=== PATIENT | female | born 1950 | race African-American/Black ===

== ENCOUNTER 2017-09-20 09:56 | Inpatient (IN) | payer OTHER ==
--- NOTE | 2017-09-20 07:57 | HP ---
[facility] - Chief Complaint Chief Complaint: right knee pain - Past Medical History Allergies/Adverse Reactions: Allergies Allergy/AdvReac Type Severity Reaction Status Date / Time No Known Drug Allergies Allergy Verified 08/31/17 14:41 - Current Medications Current Medications: Home Medications Medication Instructions Recorded Atorvastatin Ca [Lipitor] 20 mg PO HS 10/19/12 Cholecalciferol (Vitamin D3) 2,000 unit PO DAILY 07/09/15 [Vitamin D3] Zalma-3 Fatty Acids [Zalma-3] 1,000 mg PO DAILY 12/25/15 Cyanocobalamin [Vitamin B12 -] 1,000 mcg PO DAILY 08/31/17 [facility] Physical Exam - Physical Examination General Appearance: Well Nourished, Well Developed, Alert & Oriented x3 ENT: Clear Lung: Normal air movement Heart: Regular rate & rhythm Extremities: Other (right knee- + swelling, + ttp, decr rom, nvi xrays show grade 4 tricompartmental djd) Neurological: Intact, Alert, Oriented Satellite Impression/Plan - Impression/Plan Impression: right knee djd Operative Procedure: right koko tkr Date to be Performed: 09/20/17
[2017-09-20] MEDS ORDERED: CEFAZOLIN 2 GM/D5W 2 GM/50 ML ML IVPB ONE (10:25)
[2017-09-20] MEDS ORDERED: TRANEXAMIC ACID 1000 MG/10 ML VIAL IVPUSH ONE (10:25)
[2017-09-20 10:57] VITALS: BMI 33.5
[2017-09-20] MEDS ORDERED: oxyCODONE HCL 10 MG SUSTAINED ACTING TABLET ONE (10:59)
[2017-09-20] MEDS ORDERED: CELECOXIB 200 MG CAPSULE ONE (11:00)
[2017-09-20] MEDS ORDERED: GABAPENTIN 300 MG CAPSULE (FP) ONE (11:00)
[2017-09-20] MEDS: CELECOXIB 200 MG CAPSULE PO ONE ×2 (11:05→17:15)
[2017-09-20] MEDS: GABAPENTIN 300 MG CAPSULE (FP) PO ONE ×2 (11:05→17:16)
[2017-09-20] MEDS: oxyCODONE HCL 10 MG SUSTAINED ACTING TABLET PO ONE ×2 (11:05→17:16)
[2017-09-20] MEDS ORDERED: ceFAZolin SODIUM 1 GM VIAL ONE ×3 (12:23→13:45)
[2017-09-20] MEDS ORDERED: VANCOMYCIN 1,000 MG VIAL (RESTRICTED TO ID ONLY) ONE (12:24)
[2017-09-20] MEDS ORDERED: DEXAMETHASONE SOD PHOSPHATE/PF 10 MG/ML SDV ONE (12:35)
[2017-09-20] MEDS ORDERED: BUPIVACAINE HCL/PF (5 MG/ML) 30 ML VIAL IJ ONE (12:35)
[2017-09-20] MEDS ORDERED: SODIUM CHLORIDE 0.9% P/F 10 ML VIAL IJ ONE (12:36)
[2017-09-20] MEDS ORDERED: MIDAZOLAM HCL 2 MG/2 ML SINGLE DOSE VIAL ONE ×3 (12:43→14:41)
[2017-09-20] MEDS ORDERED: TRANEXAMIC ACID 1000 MG/10 ML VIAL ONE (13:45)
[2017-09-20] MEDS ORDERED: MAG HYDROX/AL HYDROX/SIMETH 30 ML UNIT-DOSE CUP PO PRN (15:12)
[2017-09-20] MEDS ORDERED: MAGNESIUM HYDROX 2400MG/30ML ORAL SUSPENSION 30 ML CUP PO PRN (15:12)
[2017-09-20] MEDS ORDERED: ONDANSETRON 4 MG/2 ML VIAL IVPUSH PRN ×2 (15:12→15:24)
--- NOTE | 2017-09-20 15:14 | OP ---
Operative Note - Note: Operative Date: 09/20/17 (meme) Pre-Operative Diagnosis: right knee djd Operation: right koko tkr Post-Operative Diagnosis: Same as Pre-op Surgeon: Maximino Gilbert Hand Wood Sander: Mike Michelle Anesthesiologist/BAND AND CUFF CUTTER: Clif Delgadillo Anesthesia: Spinal, Local Specimens Removed: bone fragments Estimated Blood Loss (mls): 200 Operative Report Dictated: Yes
[2017-09-20] MEDS ORDERED: oxyCODONE HCL 5 MG TABLET PO PRN ×2 (15:22)
[2017-09-20] MEDS ORDERED: PROMETHAZINE HCL 25 MG/1 ML VIAL IVPB PRN (15:24)
[2017-09-20] MEDS ORDERED: LACTATED RINGERS SOLUTION 1,000 ML IV SCH ×2 (15:30)
[2017-09-20] MEDS ORDERED: ACETAMINOPHEN 325 MG TABLET (FP) ONE (15:41)
[2017-09-20] MEDS: ACETAMINOPHEN 325 MG TABLET (FP) PO SCH ×3 (15:43→21:16)
--- NOTE | 2017-09-20 17:51 | SPEC ---
DATE OF OPERATION: 09/20/2017 PREOPERATIVE DIAGNOSIS: Degenerative joint disease, right knee. POSTOPERATIVE DIAGNOSIS: Degenerative joint disease, right knee. PROCEDURE: Right total knee replacement with robotic-assisted navigation (MAKOplasty). SURGICAL ATTENDING: Maximino Gilbert MD THERMOSTAT MECHANIC: SHEA Rodrigues ANESTHESIA: Regional and spinal. CLOSURE: A Press-Fit Triathlon knee system with a 5 femur, 5 tibia, 9 polyethylene, a 35 patella; No. 1 Vicryl, fascia; 0 and 2-0 for subcutaneous; and 3-0 Monocryl subcuticular with skin glue for skin; 4-0 undyed Vicryl for pin sites. ESTIMATED BLOOD LOSS: Less than 100 mL. COMPLICATIONS: None. CONDITION: To recovery room in stable condition. DESCRIPTION OF OPERATIVE PROCEDURE: Patient was taken to the operating room on September 20, 2017. Regional and spinal anesthesia was administered by the anesthesiologist. IV Kefzol was administered prophylactically prior to the case as well as TXA. The right lower extremity was prepped and draped in the usual sterile fashion. The midline 10- to 12-cm longitudinal incision was made. Hemostasis was achieved with Bovie cautery. Sharp dissection was carried down to the extensor mechanism which was perform the procedure. Medial parapatellar arthrotomy was then performed, leaving a cuff of tissue for later closure. The patella was inverted and the knee was flexed up. The fat pad was excised. Subperiosteal dissection was done on the anteromedial proximal tibia until the knee was able to be brought forward. This was facilitated by taking the ACL, PCL and medial and lateral menisci. Checkpoints were placed in both the femur and in the tibia. Two parallel threaded pins were drilled superior to the knee joint through the already made incision from anterior to posterior just going through the anterior cortex but just engaging but not going through the posterior cortex. Two threaded pins were drilled through 2 small stab incisions in parallel fashion 1 handbreadth below the tibial tubercle through the anterior cortex of the tibia and engaging but not going through the posterior cortex. Both sets of pins were attached to navigation arrays for the RADHA system. The knee was then registered with the navigation system with center of rotation of the hip, medial and lateral malleoli and multiple sites both on the tibia and on the femur. Confirmation of excellent registration was confirmed by "popping the bubbles." At this time, the knee was thoroughly inspected to remove all osteophytes around the knee. The knee was then tensioned in varus/valgus at both full extension and at 90 degrees of flexion to ascertain our gaps. The virtual position of the components was optimized to ensure equal gaps throughout the range of motion. Once this was performed, the robot was brought into the field, was registered. The bone was cut as per the specifications on both the tibia and on the femur. The box cuts were then made as well. Excellent trial stability was obtained on the femur. The tibial baseplate was allowed to "find itself" and then was clipped into place. Confirmation of excellent external rotation of that component was confirmed by the navigation device as well.The patella was calibered for thickness and cut at the appropriate level. The appropriate lollipop was used to drill 3 holes in the patella and a trial asymmetric patellar button was applied. The knee was taken through a range of motion and found to have excellent stability from full extension to full flexion with excellent tracking of the patella. The trial components were then removed. The lug holes were drilled in the femur. The cementless keel was punched in the tibia. The real Press-Fit components were malleted into place, first with the tibia and then with the femur, and then the patella was crimped into place as well. The real polyethylene liner was then clipped into place. Range of motion, stability and tracking were as described earlier. The knee was thoroughly irrigated with copious amounts of irrigation. Vancomycin powder was placed inside the joint. The medial parapatellar arthrotomy was then closed using No. 1 Vicryl interrupted suture. Post closure of the arthrotomy, the knee was taken through a range of motion and found to have no undue tension on the repair. The subcutaneous was then pulse antibiotic irrigated, closed with 0 and 2-0 Vicryl and 3-0 Monocryl subcuticular with skin glue for the skin. Prior to closure, the checkpoints were removed as were the threaded pins. The tibial pin sites were closed with 4-0 undyed Vicryl. A sterile pressure Aquacel dressing was applied. No tourniquet was used during the case. The total blood loss was approximately 100 mL. No complication. Patient was transferred to recovery in stable condition. Karo [id number]
[2017-09-20] MEDS: CEFAZOLIN 2 GM/D5W 2 GM/50 ML ML IVPB SCH (21:15)
[2017-09-20] MEDS: ATORVASTATIN CA 20 MG TABLET (FP) PO SCH (21:15)
[2017-09-20] MEDS: SENNOSIDES/DOCUSATE COMBO (SENNA PLUS) TABLET (UD) PO SCH (21:16)
[2017-09-20] MEDS: GABAPENTIN 300 MG CAPSULE (FP) PO SCH (21:16)
[2017-09-20] MEDS: oxyCODONE HCL 10 MG SUSTAINED ACTING TABLET PO SCH (21:16)
[2017-09-21] MEDS: CEFAZOLIN 2 GM/D5W 2 GM/50 ML ML IVPB SCH (02:36)
[2017-09-21] MEDS: ACETAMINOPHEN 325 MG TABLET (FP) PO SCH ×4 (03:30→21:34)
[2017-09-21 08:17] LABS: HEMATOCRIT 33.7 % (32.4-45.2); HEMOGLOBIN 10.7 GM/dl (10.7-15.3); MCH 26.6 pg (25.7-33.7); MCHC 31.6 g/dl (32.0-36.0); MEAN CELL VOLUME 84.1 fl (80-96); MEAN PLT VOLUME 10.3 fl (7.5-11.1); PLATELET COUNT 156 K/MM3 (134-434); RBC 4.01 M/mm3 (3.60-5.2); RDW 12.9 % (11.6-15.6); WHITE BLOOD COUNT 6.1 K/mm3 (4.0-10.8)
--- NOTE | 2017-09-21 09:06 | PN ---
Progress Note (short form) - Note Progress Note: Ortho Pt seen and examined s/p right koko tkr pod #1 Selected Entries 09/21/17 03:00 Temperature 98.2 F Pulse Rate 77 Respiratory 19 Rate Blood Pressure 121/59 Laboratory Tests 09/21/17 07:35 WBC 6.1 Hgb 10.7 Hct 33.7 Plt Count 156 dressing c/d/i, calf soft, nt rom 0-50, nvi a/p PT dvt ppx pain control d/c home tomorrow if stable
[2017-09-21] MEDS: ASPIRIN 325 MG TABLET PO SCH (09:16)
[2017-09-21] MEDS: PANTOPRAZOLE 40 MG TABLET (FP) PO SCH (09:16)
[2017-09-21] MEDS: GABAPENTIN 300 MG CAPSULE (FP) PO SCH ×2 (09:16→21:34)
[2017-09-21] MEDS: oxyCODONE HCL 10 MG SUSTAINED ACTING TABLET PO SCH (09:16)
[2017-09-21] MEDS: MULTIVITAMINS (DAILY MVI) TABLET (FP) PO SCH (09:16)
[2017-09-21] MEDS: SENNOSIDES/DOCUSATE COMBO (SENNA PLUS) TABLET (UD) PO SCH ×2 (09:16→21:34)
[2017-09-21] MEDS: ATORVASTATIN CA 20 MG TABLET (FP) PO SCH (21:34)
[2017-09-22] MEDS: ACETAMINOPHEN 325 MG TABLET (FP) PO SCH ×2 (03:10→09:07)
[2017-09-22] MEDS: ASPIRIN 325 MG TABLET PO SCH (08:16)
--- NOTE | 2017-09-22 08:26 | PN ---
Progress Note (short form) - Note Progress Note: Ortho Pt seen and examined s/p right koko tkr pod #2 Selected Entries 09/22/17 06:00 Temperature 98.4 F Pulse Rate 97 H Respiratory 18 Rate Blood Pressure 152/68 cbc pending dressing c/d/i, calf soft, nt rom 0-50, nvi a/p PT dvt ppx pain control d/c home today f/u in 1 week
--- NOTE | 2017-09-22 08:26 | DS ---
Physical Examination Vital Signs: Vital Signs Temperature 98.4 F 09/22/17 06:00 Pulse Rate 97 H 09/22/17 06:00 Respiratory Rate 18 09/22/17 06:00 Blood Pressure 152/68 09/22/17 06:00 O2 Sat by Pulse Oximetry (%) 95 09/22/17 06:00 Labs: CBC, BMP 09/21/17 07:35 Discharge Summary Reason For Visit: OSTEOARTHRITIS Procedures: Principal: right tkr Hospital Course: admitted for elective left koko tkr, uneventful post-op, stable for d/c Condition: Good - Instructions Diet, Activity, Other Instructions: Post-op Instructions-Total Knee Replacement Call the office for a follow-up appointment in 1 week - [phone] Aspirin 325mg daily for 6 weeks. Pain medication was sent into your pharmacy. Apply Graduated Compression Stockings (TEDs) to both lower extremities- remove daily for hygiene ONLY Apply Sequential Compression Device (SCDs) to both Lower extremities remove for PT and hygiene ONLY Apply cold packs to affected area for 15 minutes every 2 hours. Physical Therapist will come to your home for the first 5 days. You will be set up with outpatient PT at your first post-operative visit. Patient may ambulate as tolerated-encourage self care (at least every 2-3 hours while awake) with walker or cane Maintain Aquacel (waterproof) dressing to operative wound (will be removed by surgeon at first office visit) Shower with Aquacel dressing in place-if Aquacel integrity compromised, remove and apply dry sterile dressing and notify Orthopedist. DO NOT SHOWER unless Orthopedists approves without Aquacel dressing CONTACT THE OFFICE FOR ANY CHANGE IN YOUR CONDITION (for example-fever greater than 102 degrees, excessive bleeding from operative site, purulent drainage, severe swelling or pain) GO TO THE EMERGENCY ROOM IF THERE IS A MEDICAL EMERGENCY Knee Precautions: * Keep a rolled towel under affected heel while in bed or chair (to keep knee in extension) * Keep affected leg elevated except during mealtimes * DO NOT PLACE PILLOW UNDER AFFECTED KNEE * If you have any questions, please do not hesitate to call the office - . Referrals: Maximino Gilbert MD [Staff Physician] - Disposition: VNS/HOME HEALTH CARE - Home Medications Comprehensive Discharge Medication List: Ambulatory Orders Atorvastatin Ca [Lipitor] 20 mg PO HS 10/19/12 Cholecalciferol (Vitamin D3) [Vitamin D3] 2,000 unit PO DAILY 07/09/15 Greenwood-3 Fatty Acids [Greenwood-3] 1,000 mg PO DAILY 12/25/15 Cyanocobalamin [Vitamin B12 -] 1,000 mcg PO DAILY 08/31/17 Aspirin [ASA -] 325 mg PO DAILY@0800 tablet 09/20/17 Oxycodone HCl/Acetaminophen [Percocet 5-325 mg Tablet -] 1 - 2 tab PO Q6H #50 tab MDD 8 09/20/17
[2017-09-22] MEDS: SENNOSIDES/DOCUSATE COMBO (SENNA PLUS) TABLET (UD) PO SCH (09:08)
[2017-09-22] MEDS: MULTIVITAMINS (DAILY MVI) TABLET (FP) PO SCH (09:08)
[2017-09-22] MEDS: GABAPENTIN 300 MG CAPSULE (FP) PO SCH (09:08)
[2017-09-22] MEDS: PANTOPRAZOLE 40 MG TABLET (FP) PO SCH (09:08)
[2017-09-22 09:21] LABS: HEMATOCRIT 32.8 % (32.4-45.2); MCH 28.2 pg (25.7-33.7); MCHC 33.5 g/dl (32.0-36.0); MEAN CELL VOLUME 84.1 fl (80-96); MEAN PLT VOLUME 10.3 fl (7.5-11.1); PLATELET COUNT 138 K/MM3 (134-434); RDW 12.7 % (11.6-15.6); WHITE BLOOD COUNT 7.3 K/mm3 (4.0-10.8)
[2017-09-22 12:13] VITALS: BP 122/78; PULSE 80; TEMP 98.2
--- NOTE | 2017-09-26 14:00 | PATH ---
Surgical Pathology Report Patient Name: SAHARA HERNADEZ [facility]. Rec. #: [id number] /Age/Gender: 1950 (Age: 66) / F Account: [id number] Location: [facility] MED-SURG Taken: 09/20/2017 Received: 09/20/2017 Reported: 09/26/2017 Physicians: Maximino Gilbert M.D. Specimen(s) Received RIGHT KNEE BONE FRAGMENTS Clinical History Osteoarthritis of right knee Final Diagnosis KNEE BONE FRAGMENTS, RIGHT, TOTAL KNEE REPLACEMENT: DEGENERATIVE JOINT DISEASE. Electronically Signed Marisela Diaz M.D. Gross Description Received in formalin labeled "right knee bone fragments," is a 13.5 x 11.5 x 1.8 cm aggregate of multiple portions of bone and soft tissue. The tibial plateau measures 7.6 x 5.5 x 1.5 cm. There are multiple areas of eburnation present, measuring up to 2.4 cm in greatest dimension. The remaining articular surfaces are brantley-brown and diffusely granular. The underlying trabecular bone is yellow and hard. Retail Sales Associate Bilingual sections are submitted in one cassette, following decalcification. 09/22/201709/22/2017
== END 2017-09-22 12:40 | disposition home health service (06) | DRG 470 ==
LOC: FM/S 09:56
PROVIDERS: ADMIT Orthopaedic Surgery; ATTEND Orthopaedic Surgery
PROC: 8E0Y0CZ Robotic Assisted Procedure of Lower Extremity, Open Approach (ICD-10-PCS; 2017-09-20)
PROC: 0SRC0JA Replacement of Right Knee Joint with Synthetic Substitute, Uncemented, Open Approach (ICD-10-PCS; principal; 2017-09-20 12:30)
DX: M17.11 Unilateral primary osteoarthritis, right knee (principal)
CPT/HCPCS: 36415; 73560-TC-RT-FY; 85027; 88304-TC; 88311-TC; 94760; 97116-GP; 97162-GP

== ENCOUNTER 2022-02-09 06:06 | Day surgery (SDC) | payer OTHER ==
[2022-02-09 07:00] VITALS: BMI 33.8
[2022-02-09] MEDS ORDERED: VANCOMYCIN 1,000 MG VIAL (RESTRICTED TO ID ONLY) ONE ×2 (07:11→08:25)
[2022-02-09] MEDS ORDERED: ceFAZolin SODIUM 1 GM VIAL ONE ×2 (07:11→08:22)
[2022-02-09] MEDS ORDERED: FENTANYL CITRATE/PF 50 MCG/ML VIAL ONE (07:31)
[2022-02-09] MEDS ORDERED: BUPIVACAINE LIPOSOME/PF (EXPAREL) 266 MG/20 ML VIAL ONE ×2 (07:31→07:41)
[2022-02-09] MEDS ORDERED: MIDAZOLAM HCL 2 MG/2 ML SINGLE DOSE VIAL ONE ×2 (07:31→07:33)
[2022-02-09] MEDS ORDERED: BUPIVACAINE HCL 50 ML ONE ×2 (07:32→07:42)
[2022-02-09] MEDS ORDERED: ONDANSETRON 4 MG/2 ML VIAL IVPUSH PRN (08:01)
[2022-02-09] MEDS ORDERED: LACTATED RINGERS SOLUTION 1,000 ML IV SCH (08:15)
[2022-02-09] MEDS ORDERED: SODIUM CHLORIDE 0.9% P/F 10 ML VIAL IJ ONE (08:22)
[2022-02-09] MEDS ORDERED: PROPOFOL 20 ML ONE ×2 (08:30→09:22)
[2022-02-09] MEDS ORDERED: ePHEDrine SULFATE 50 MG/1 ML AMPULE ONE (08:39)
[2022-02-09] MEDS ORDERED: PHENYLEPHRINE HCL 10 MG/1 ML SINGLE DOSE VIAL ONE (09:42)
[2022-02-09] MEDS ORDERED: PATIENT'S OWN MEDICATION (NON-FORMULARY) (Nitrofurantoin Macrocrystal [Nitrofurantoin] 100 PO SCH (10:00)
[2022-02-09] MEDS ORDERED: oxyCODONE HCL 5 MG TABLET PO PRN ×2 (10:14)
[2022-02-09] MEDS: KETOROLAC TROMETHAMINE 30 MG/1 ML VIAL IVPUSH SCH ×2 (10:45→17:59)
[2022-02-09] MEDS ORDERED: KETOROLAC TROMETHAMINE 30 MG/1 ML VIAL ONE (10:47)
[2022-02-09] MEDS ORDERED: ACETAMINOPHEN INJECTION 100 ML IVPB ONE (10:47)
[2022-02-09] MEDS: ACETAMINOPHEN 1000 MG/100 ML BAG IVPB ONE ×2 (10:50→17:59)
[2022-02-09] MEDS: MULTIVITAMINS (DAILY MVI) TABLET (FP) PO SCH (14:36)
[2022-02-09] MEDS: SENNOSIDES/DOCUSATE COMBO (SENNA PLUS) TABLET (UD) PO SCH ×2 (14:36→21:14)
[2022-02-09] MEDS: PANTOPRAZOLE 40 MG TABLET PO SCH (14:36)
[2022-02-09] MEDS: CEFAZOLIN SODIUM 2 GM in DEXTROSE 5%-WATER 100 ML IVPB SCH ×2 (16:21→23:47)
[2022-02-09] MEDS ORDERED: KETOROLAC TROMETHAMINE 30 MG/1 ML VIAL IVPUSH SCH (18:00)
[2022-02-09] MEDS: ACETAMINOPHEN 500 MG TABLET (FP) PO SCH ×2 (18:21→23:47)
[2022-02-09] MEDS: oxyCODONE HCL 10 MG SUSTAINED ACTING TABLET PO SCH (21:14)
[2022-02-09] MEDS ORDERED: ATORVASTATIN CA 20 MG TABLET (FP) PO SCH (22:00)
[2022-02-10] MEDS: ACETAMINOPHEN 500 MG TABLET (FP) PO SCH ×2 (06:40→12:17)
[2022-02-10] MEDS ORDERED: ASPIRIN 325 MG TABLET PO SCH (08:00)
[2022-02-10 08:16] VITALS: PULSE 86
[2022-02-10 08:38] LABS: HEMATOCRIT 35.6 % (32.4-45.2); HEMOGLOBIN 11.5 G/dL (10.7-15.3); MCHC 32.2 g/dl (32.0-36.0); MEAN CELL VOLUME 87.1 fl (80-96); MEAN PLT VOLUME 10.4 fl (7.5-11.1); PLATELET COUNT 130.4 10^3/uL (134-434); RBC 4.09 10^6/uL (3.60-5.2); RDW 14.4 % (11.6-15.6); WHITE BLOOD COUNT 5.3 10^3/uL (4.0-10.8)
[2022-02-10] MEDS: SENNOSIDES/DOCUSATE COMBO (SENNA PLUS) TABLET (UD) PO SCH (09:31)
[2022-02-10] MEDS: oxyCODONE HCL 10 MG SUSTAINED ACTING TABLET PO SCH (09:32)
[2022-02-10] MEDS: MULTIVITAMINS (DAILY MVI) TABLET (FP) PO SCH (09:33)
[2022-02-10] MEDS: PANTOPRAZOLE 40 MG TABLET PO SCH (09:33)
[2022-02-10 14:08] VITALS: BP 131/61; RESP 17; TEMP 98.5
== END 2022-02-10 16:10 | disposition home health service (06) ==
LOC: FASUSAT 06:06 → EDSTATUS 08:00 → FM/S 11:07 → FASUSAT 02-10 16:10
PROVIDERS: ATTEND Orthopaedic Surgery
PROC: 8E0Y0CZ Robotic Assisted Procedure of Lower Extremity, Open Approach (ICD-10-PCS; 2022-02-09)
PROC: 0SRC0JA Replacement of Right Knee Joint with Synthetic Substitute, Uncemented, Open Approach (ICD-10-PCS; principal; 2022-02-09 08:35)
DX: M17.11 Unilateral primary osteoarthritis, right knee (principal); E78.5 Hyperlipidemia, unspecified
CPT/HCPCS: 20985; 27447; C1776; S2900; 36415; 73560-TC-LT-FY; 85027; 94760; 97010-GP; 97116-GP; 97162-GP; C1713